=== PATIENT | female | born 1970 | race Caucasian/White ===

== ENCOUNTER 2017-08-02 17:24 | Emergency (ER) | payer MEDICARE, MEDICAID | END 2017-08-02 19:32 | disposition left against medical advice (07) | LOC: M ED 17:24 | DX: Z53.21 Procedure and treatment not carried out due to patient leaving prior to being seen by health care provider (principal) ==

== ENCOUNTER 2017-11-11 17:20 | Emergency (ER) | payer MEDICARE, MEDICAID | END 2017-11-11 21:22 | disposition home or self-care (01) | LOC: M ED 17:20 | DX: S40.012A Contusion of left shoulder, initial encounter (principal); W00.0XXA Fall on same level due to ice and snow, initial encounter; Y92.096 Garden or yard of other non-institutional residence as the place of occurrence of the external cause; I25.10 Atherosclerotic heart disease of native coronary artery without angina pectoris; J45.909 Unspecified asthma, uncomplicated; I25.2 Old myocardial infarction; F17.200 Nicotine dependence, unspecified, uncomplicated; Z91.018 Allergy to other foods; Z88.5 Allergy status to narcotic agent; Z88.8 Allergy status to other drugs, medicaments and biological substances; Z91.030 Bee allergy status; Z91.048 Other nonmedicinal substance allergy status; Z79.899 Other long term (current) drug therapy | CPT/HCPCS: 73030 ==

== ENCOUNTER 2018-07-15 15:07 | Emergency (ER) | payer MEDICARE, MEDICAID ==
[2018-07-15 15:50] LABS: BASO % 0.3 % (0.0-1.0); EOS # 0.2 10^3/uL (0.0-0.50); EOS % 1.7 % (0.0-3.0); HEMOGLOBIN 14.8 g/dl (12.0-15.5); IMMATURE GRANULOCYTE % 0.3 % (0-3.0); LYMPH # 3.3 10^3/uL (1.5-4.5); LYMPH % 37.8 % (24.0-44.0); MEAN CORPUSCULAR HEMOGLOBIN 31.8 pg (27.0-33.0); MEAN CORPUSCULAR HGB CONC 34.4 g/dl (32.0-36.5); MEAN CORPUSCULAR VOLUME 92.3 fl (80.0-96.0); MONO # 0.5 10^3/uL (0.0-0.8); MONO % 6.2 % (0.0-5.0); NEUTROPHILS # 4.6 10^3/uL (1.8-7.7); NEUTROPHILS % 53.7 % (36.0-66.0); PLATELET COUNT, AUTOMATED 326 10^3/uL (150-450); RED BLOOD COUNT 4.66 10^6/uL (4.00-5.40); RED CELL DISTRIBUTION WIDTH 12.6 % (11.5-14.5); WHITE BLOOD COUNT 8.7 10^3/uL (4.0-10.0)
[2018-07-15] MEDS: NS 1,000 ML IV (16:09)
[2018-07-15] MEDS: METOCLOPRAMIDE INJ 10MG/2ML VIAL (J2765) IV (16:09)
[2018-07-15] MEDS: diphenhydrAMINE INJ 50MG/ML VIAL (J1200) IV (16:09)
[2018-07-15 16:32] LABS: ACETAMINOPHEN LEVEL 4.4 UG/ML (10.0-30.0); ALBUMIN 4.1 GM/DL (3.2-5.2); ALBUMIN/GLOBULIN RATIO 1.21 (1.00-1.93); ALKALINE PHOSPHATASE 98 U/L (45-117); ALT/SGPT 48 U/L (12-78); ANION GAP 6 MEQ/L (8-16); AST/SGOT 24 U/L (7-37); BILIRUBIN,DIRECT 0.1 MG/DL (0.0-0.2); BILIRUBIN,TOTAL 0.4 MG/DL (0.2-1.0); BLOOD UREA NITROGEN 12 MG/DL (7-18); CALCIUM LEVEL 9.3 MG/DL (8.5-10.1); CARBON DIOXIDE LEVEL 28 MEQ/L (21-32); CHLORIDE LEVEL 104 MEQ/L (98-107); CK-MB VALUE MASS < 1.0 NG/ML (<3.6); CPK CREATINE PHOSPHOKINASE 73 U/L (26-192); CREATININE FOR GFR 0.73 MG/DL (0.55-1.30); ETHYL ALCOHOL (ETHANOL) 0.005 % (0.000-0.010); GLOMERULAR FILTRATION RATE > 60.0 (>58); GLUCOSE, FASTING 97 MG/DL (70-100); MB/CK RELATIVE INDEX 1.37 (< OR =4); SALICYLATE LEVEL 5.2 MG/DL (5.0-30.0); SODIUM LEVEL 138 MEQ/L (136-145); TOTAL PROTEIN 7.5 GM/DL (6.4-8.2); TROPONIN I < 0.02 NG/ML (< 0.10)
[2018-07-15 17:07] LABS: KETONE, URINE AUTO RFX NEGATIVE (NEGATIVE); LEUKOCYTE ESTERASE UR AUTO RFX NEGATIVE (NEGATIVE); NITRITE, URINE AUTO RFX NEGATIVE (NEGATIVE); RBC, URINE AUTO RFX 1 /HPF (0-3); SPECIFIC GRAVITY UR AUTO RFX 1.004 (1.002-1.035); SQUAM EPITHELIAL CELL UR AURFX 0 /HPF (0-6); WBC, URINE AUTO RFX 0 /HPF (0-3)
[2018-07-15 17:24] LABS: AMPHETAMINES LEVEL URINE NEGATIVE (NEGATIVE); BARBITURATES URINE NEGATIVE (NEGATIVE); BENZODIAZEPINES URINE NEGATIVE (NEGATIVE); CANNABINOIDS URINE NEGATIVE (NEGATIVE); COCAINE METABOLITE URINE NEGATIVE (NEGATIVE); METHADONE URINE NEGATIVE (NEGATIVE); OPIATES URINE NEGATIVE (NEGATIVE); PHENCYCLIDINE URINE NEGATIVE (NEGATIVE)
== END 2018-07-15 17:40 | disposition home or self-care (01) ==
LOC: M ED 15:07
DX: R51 Headache (principal); I45.10 Unspecified right bundle-branch block; Z72.0 Tobacco use; Z79.899 Other long term (current) drug therapy; Z91.013 Allergy to seafood; Z91.018 Allergy to other foods; Z88.5 Allergy status to narcotic agent; Z91.89 Other specified personal risk factors, not elsewhere classified
CPT/HCPCS: J1200

== ENCOUNTER → 2019-04-29 | Outpatient (REF) ==
[~2019-04-29] MED LIST: CENTCHW4 PO; IBUP80TA PO; MORP15TA2 PO; PROAAER IN; PROV10TA PO; REGL10TA6 PO; TYLE325T5 PO; VITA50005
--- NOTE | 2019-04-29 17:02 | REP ---
REASON: Disability determination. COMPARISON EXAMINATION: 04/16/2019, the latest prior. Vertebral body height and alignment is again seen to be within normal limits. There is disc space narrowing status quo. Minimally tiny partial syndesmophytes are seen on the right at L3-4. The pedicles are intact bilaterally. IMPRESSION:Mild chronic changes have developed since the prior exam as described above. Electronically Signed by Oli Boyce DO 04/29/2019 05:06 P
== END ==
LOC: M SMT 13:38
PROVIDERS: ATTEND Internal Medicine
DX: Z02.71 Encounter for disability determination (principal)

== ENCOUNTER 2019-08-12 15:59 | Emergency (ER) | payer MEDICARE, MEDICAID ==
[~2019-08-12] VITALS: Ht 160 cm; Wt 80.6 kg
[2019-08-12 15:59] VITALS: BP 132/74
--- NOTE | 2019-08-12 17:48 | REP ---
Right ring finger series: Four views. History: Swelling and redness. Limited range of motion. Findings: Four views of the ring finger demonstrate soft tissue swelling about the PIP joint. No fractures seen. No soft tissue gas or opaque foreign body is appreciated. No subluxation seen. Impression: Soft-tissue swelling. Otherwise negative radiographs of the right ring finger. Electronically Signed by Julian Longoria MD 08/12/2019 05:38 P
[2019-08-12 17:55] LABS: BASO % 0.4 % (0.0-1.0); EOS # 0.2 10^3/uL (0.0-0.5); HEMATOCRIT 44.7 % (36.0-47.0); HEMOGLOBIN 14.3 g/dl (12.0-15.5); LYMPH # 3.5 10^3/uL (1.5-5.0); LYMPH % 36.1 % (24.0-44.0); MEAN CORPUSCULAR VOLUME 96.8 fl (80.0-96.0); MONO # 0.7 10^3/uL (0.0-0.8); MONO % 7.2 % (0.0-5.0); NEUTROPHILS # 5.2 10^3/uL (1.5-8.5); NEUTROPHILS % 53.9 % (36.0-66.0); PLATELET COUNT, AUTOMATED 299 10^3/uL (150-450); RED BLOOD COUNT 4.62 10^6/uL (4.00-5.40); WHITE BLOOD COUNT 9.6 10^3/uL (4.0-10.0)
[2019-08-12] MEDS ORDERED: IBUPROFEN 800 MG TAB PO ONE (18:00)
[2019-08-12 18:16] LABS: C REACTIVE PROTEIN QUANTITATIV 0.89 MG/DL (0.00-0.30); URIC ACID 4.2 MG/DL (2.6-6.0)
[2019-08-12 18:32] LABS: ERYTHROCYTE SEDIMENTATION RATE 7 mm/hr (0-20)
== END 2019-08-12 19:42 | disposition home or self-care (01) ==
LOC: M ED 15:59
DX: R22.31 Localized swelling, mass and lump, right upper limb (principal); J45.909 Unspecified asthma, uncomplicated; M79.7 Fibromyalgia; M19.90 Unspecified osteoarthritis, unspecified site; I25.2 Old myocardial infarction; Z88.5 Allergy status to narcotic agent; Z88.8 Allergy status to other drugs, medicaments and biological substances; Z91.018 Allergy to other foods; Z91.030 Bee allergy status; Z91.048 Other nonmedicinal substance allergy status; F17.210 Nicotine dependence, cigarettes, uncomplicated

== ENCOUNTER 2019-12-15 12:43 | Emergency (ER) | payer OTHER, MEDICARE, MEDICAID ==
[~2019-12-15] VITALS: Ht 160 cm; Wt 83.3 kg
[2019-12-15 12:43] VITALS: BP 143/69
== END 2019-12-15 13:20 | disposition left against medical advice (07) ==
LOC: M ED 12:43
DX: Z53.21 Procedure and treatment not carried out due to patient leaving prior to being seen by health care provider (principal)

== ENCOUNTER 2021-10-11 10:47 | Emergency (ER) | payer MEDICARE, MEDICAID ==
[~2021-10-11] VITALS: Ht 160 cm; Wt 78.6 kg
[2021-10-11 11:22] VITALS: BP 139/66
== END 2021-10-11 16:49 | disposition home or self-care (01) ==
LOC: M ED 10:47
DX: M85.68 Other cyst of bone, other site (principal); S83.411A Sprain of medial collateral ligament of right knee, initial encounter; W01.0XXA Fall on same level from slipping, tripping and stumbling without subsequent striking against object, initial encounter; Y92.89 Other specified places as the place of occurrence of the external cause; Z88.5 Allergy status to narcotic agent; Z88.8 Allergy status to other drugs, medicaments and biological substances; Z91.018 Allergy to other foods; Z91.030 Bee allergy status; Z91.048 Other nonmedicinal substance allergy status; F17.210 Nicotine dependence, cigarettes, uncomplicated

== ENCOUNTER → 2021-11-15 | Outpatient (CLI) | payer MEDICARE, MEDICAID ==
[~2021-11-15] MED LIST changes: +PROHANCE 279.3MG/ML 15ML VIAL ONE; +PROHANCE 279.3MG/ML 5ML VIAL ONE
== END ==
LOC: M PLAIMG 14:09
PROVIDERS: ATTEND Orthopaedic Surgery Adult Reconstructive Orthopaedic Surgery
DX: M85.661 Other cyst of bone, right lower leg (principal)
CPT/HCPCS: 73723; A9576

== ENCOUNTER → 2022-01-26 | Outpatient (CLI) | payer MEDICARE, MEDICAID ==
[~2022-01-26] MED LIST changes: -PROHANCE 279.3MG/ML 15ML VIAL ONE; -PROHANCE 279.3MG/ML 5ML VIAL ONE
== END ==
LOC: M SOG 16:09
PROVIDERS: ATTEND Orthopaedic Surgery Adult Reconstructive Orthopaedic Surgery
DX: R93.7 Abnormal findings on diagnostic imaging of other parts of musculoskeletal system (principal)

== ENCOUNTER 2022-05-20 14:17 | Emergency (ER) | payer MEDICARE, MEDICAID ==
[~2022-05-20] VITALS: Ht 160 cm; Wt 75.9 kg
[2022-05-20 15:11] VITALS: BP 121/69
[2022-05-20] MEDS ORDERED: methylPREDNISolone 125MG 2ML VIAL IV ONE (15:45)
[2022-05-20] MEDS ORDERED: IPRATROPIUM 0.5MG/ALBUTEROL 2.5MG INH SOL UD 3ML (DUONEB) NEB PRN (15:45)
[2022-05-20 16:28] LABS: VENOUS PH 7.406 UNITS (7.330-7.430)
[2022-05-20 16:29] LABS: VENOUS BASE EXCESS -0.3 (-2.0-2.0); VENOUS HCO3 24.2 MEQ/L (23.0-27.0); VENOUS O2 SATURATION 97.6 % (60.0-80.0); VENOUS PARTIAL PRESSURE CO2 39.4 mmHg (38.0-50.0); VENOUS PARTIAL PRESSURE O2 103.4 mmHg (30.0-50.0); VENOUS STANDARD HCO3 24.2 MEQ/L; VENOUS TOTAL CO2 25.4 MEQ/L (24.0-28.0)
[2022-05-20 16:34] LABS: HEMATOCRIT 40.5 % (36.0-47.0); HEMOGLOBIN 13.6 g/dl (12.0-15.5); MEAN CORPUSCULAR HEMOGLOBIN 31.6 pg (27.0-33.0); MEAN CORPUSCULAR HGB CONC 33.6 g/dl (32.0-36.5); PLATELET COUNT, AUTOMATED 304 10^3/uL (150-450); RED BLOOD COUNT 4.31 10^6/uL (4.00-5.40); WHITE BLOOD COUNT 6.5 10^3/uL (4.0-10.0)
[2022-05-20 17:11] LABS: ALBUMIN 3.6 GM/DL (3.2-5.2); ALT/SGPT 92 U/L (12-78); BILIRUBIN,DIRECT 0.2 MG/DL (0.0-0.2); BILIRUBIN,TOTAL 0.3 MG/DL (0.2-1.0); BLOOD UREA NITROGEN 16 MG/DL (7-18); CALCIUM LEVEL 8.6 MG/DL (8.5-10.1); CARBON DIOXIDE LEVEL 25 MEQ/L (21-32); CHLORIDE LEVEL 106 MEQ/L (98-107); CK-MB VALUE MASS < 1.0 NG/ML (<3.6); CPK CREATINE PHOSPHOKINASE 97 U/L (26-192); CREATININE FOR GFR 0.72 MG/DL (0.55-1.30); GLOMERULAR FILTRATION RATE > 60.0 (>51); GLUCOSE, FASTING 102 MG/DL (70-100); MB/CK RELATIVE INDEX 1.03 (< OR =4); POTASSIUM SERUM 4.2 MEQ/L (3.5-5.1); SODIUM LEVEL 136 MEQ/L (136-145); TOTAL PROTEIN 7.2 GM/DL (6.4-8.2)
[2022-05-20 17:18] LABS: LYMPHOCYTES 38 % (16-44); MONOCYTES 7 % (0-5); NEUTROPHILS 55 % (28-66); PLATELET ESTIMATE NORMAL (NORMAL)
== END 2022-05-20 17:42 | disposition left against medical advice (07) ==
LOC: M ED 14:17
DX: R06.02 Shortness of breath (principal); Z53.20 Procedure and treatment not carried out because of patient's decision for unspecified reasons; R94.31 Abnormal electrocardiogram [ECG] [EKG]; J45.909 Unspecified asthma, uncomplicated; I25.2 Old myocardial infarction; I51.9 Heart disease, unspecified; F17.210 Nicotine dependence, cigarettes, uncomplicated; Z88.5 Allergy status to narcotic agent; Z88.8 Allergy status to other drugs, medicaments and biological substances; Z91.030 Bee allergy status; Z91.018 Allergy to other foods; Z91.048 Other nonmedicinal substance allergy status; Z90.710 Acquired absence of both cervix and uterus

== ENCOUNTER → 2022-12-12 | Outpatient (REF) | payer MEDICARE, MEDICAID ==
[2022-12-12 13:29] LABS: ALBUMIN 3.9 G/DL (3.2-5.2); ALKALINE PHOSPHATASE 98 U/L (46-116); ALT/SGPT 29 U/L (7.0-40); AST/SGOT 16 U/L (<34); BILIRUBIN,TOTAL 0.4 MG/DL (0.3-1.2); BLOOD UREA NITROGEN 14 MG/DL (9-23); CALCIUM LEVEL 9.4 MG/DL (8.5-10.1); CARBON DIOXIDE LEVEL 28 MMOL/L (20-31); CHLORIDE LEVEL 104 MMOL/L (98-107); CHOLESTEROL LEVEL 249 MG/DL (<200); CHOLESTEROL RISK RATIO 5.44 (<5); GLOMERULAR FILTRATION RATE > 60.0 (>51); GLUCOSE, FASTING 84 MG/DL (60-100); HDL CHOLESTEROL 45.7 MG/DL (>40); LDL CHOLESTEROL 139.3 MG/DL (<100); NON-HDL-C 203.3 MG/DL; POTASSIUM SERUM 4.6 MMOL/L (3.5-5.1); SODIUM LEVEL 140 MMOL/L (136-145); TRIGLYCERIDES LEVEL 320 MG/DL (<150)
[2022-12-12 13:34] LABS: THYROID STIMULATING HORMONE 1.594 uIU/ML (0.55-4.78)
[2022-12-12 13:43] LABS: HEMOGLOBIN A1c 5.2 % (4.0-6.0)
== END ==
LOC: M LAB REF 12:20
PROVIDERS: ATTEND Family Medicine Addiction Medicine
DX: Z83.3 Family history of diabetes mellitus (principal); E66.3 Overweight

== ENCOUNTER 2023-12-18 18:21 | Emergency (ER) | payer MEDICARE, MEDICAID ==
[~2023-12-18] VITALS: Ht 160 cm; Wt 83.3 kg
[2023-12-18 18:21] VITALS: BP 128/96; TEMP 98.6; O2SAT 100
== END 2023-12-18 19:58 | disposition left against medical advice (07) ==
LOC: M ED 18:21
DX: R07.0 Pain in throat (principal); Z53.9 Procedure and treatment not carried out, unspecified reason; I25.2 Old myocardial infarction; M79.7 Fibromyalgia; F17.200 Nicotine dependence, unspecified, uncomplicated; Z88.5 Allergy status to narcotic agent; Z88.8 Allergy status to other drugs, medicaments and biological substances; Z91.018 Allergy to other foods; Z91.89 Other specified personal risk factors, not elsewhere classified; Z91.030 Bee allergy status

== ENCOUNTER → 2024-04-28 | Outpatient (REF) | payer MEDICARE, MEDICAID ==
[2024-04-28 12:43] LABS: THYROID STIMULATING HORMONE 1.803 uIU/ML (0.55-4.78)
[2024-04-28 12:44] LABS: ALBUMIN 3.9 G/DL (3.2-5.2); ALKALINE PHOSPHATASE 132 U/L (46-116); ALT/SGPT 38 U/L (7.0-40); AST/SGOT 20 U/L (<34); BILIRUBIN,TOTAL 0.2 MG/DL (0.3-1.2); BLOOD UREA NITROGEN 16 MG/DL (9-23); CALCIUM LEVEL 9.9 MG/DL (8.5-10.1); CARBON DIOXIDE LEVEL 28 MMOL/L (20-31); CHLORIDE LEVEL 106 MMOL/L (98-107); CHOLESTEROL LEVEL 249 MG/DL (<200); CHOLESTEROL RISK RATIO 6.46 (<5); CREATININE FOR GFR 0.81 MG/DL (0.55-1.30); FREE T4 1.21 NG/DL (0.89-1.76); GLOMERULAR FILTRATION RATE > 60.0 (>51); GLUCOSE, FASTING 86 MG/DL (60-100); HDL CHOLESTEROL 38.5 MG/DL (>40); LDL CHOLESTEROL 135.5 MG/DL (<100); NON-HDL-C 210.5 MG/DL; POTASSIUM SERUM 4.6 MMOL/L (3.5-5.1); SODIUM LEVEL 139 MMOL/L (136-145); TOTAL PROTEIN 7.2 G/DL (5.7-8.2); TRIGLYCERIDES LEVEL 375 MG/DL (<150)
[2024-04-28 13:08] LABS: HIV 1&2 SCREEN NEGATIVE (NEGATIVE)
== END ==
LOC: M LAB REF 11:59
PROVIDERS: ATTEND Family Medicine Addiction Medicine
DX: Z00.00 Encounter for general adult medical examination without abnormal findings (principal); E78.00 Pure hypercholesterolemia, unspecified

== ENCOUNTER → 2024-07-27 | Outpatient (REF) | payer MEDICARE, MEDICAID ==
[2024-07-27 13:35] LABS: BASO # 0.1 10^3/uL (0.0-0.2); BASO % 0.6 % (0.0-1.0); EOS # 0.3 10^3/uL (0.0-0.5); EOS % 3.7 % (0.0-3.0); HEMATOCRIT 43.5 % (36.0-47.0); HEMOGLOBIN 14.5 g/dl (12.0-15.5); LYMPH # 3.1 10^3/uL (1.5-5.0); LYMPH % 39.2 % (24.0-44.0); MEAN CORPUSCULAR HEMOGLOBIN 31.5 pg (27.0-33.0); MEAN CORPUSCULAR HGB CONC 33.3 g/dl (32.0-36.5); MEAN CORPUSCULAR VOLUME 94.4 fl (80.0-96.0); MONO # 0.6 10^3/uL (0.0-0.8); MONO % 7.5 % (2.0-8.0); NEUTROPHILS # 3.9 10^3/uL (1.5-8.5); NEUTROPHILS % 48.7 % (36.0-66.0); PLATELET COUNT, AUTOMATED 291 10^3/uL (150-450); RED BLOOD COUNT 4.61 10^6/uL (4.00-5.40); WHITE BLOOD COUNT 7.9 10^3/uL (4.0-10.0)
[2024-07-27 13:44] LABS: THYROID STIMULATING HORMONE 3.238 uIU/ML (0.55-4.78); TOTAL 25(OH) VITAMIN D 14.8 NG/ML (20.0-100.0)
[2024-07-27 13:49] LABS: FREE T4 1.16 NG/DL (0.89-1.76)
[2024-07-27 13:50] LABS: ALBUMIN 3.8 G/DL (3.2-5.2); ALKALINE PHOSPHATASE 107 U/L (35-104); ALT/SGPT 33 U/L (7.0-40); AST/SGOT 22 U/L (<34); BILIRUBIN,TOTAL 0.4 MG/DL (0.3-1.2); BLOOD UREA NITROGEN 14 MG/DL (9-23); CALCIUM LEVEL 9.8 MG/DL (8.5-10.1); CARBON DIOXIDE LEVEL 28 MMOL/L (20-31); CHLORIDE LEVEL 106 MMOL/L (98-107); CHOLESTEROL LEVEL 254 MG/DL (<200); CHOLESTEROL RISK RATIO 6.13 (<5); CREATININE FOR GFR 0.64 MG/DL (0.55-1.30); GLOMERULAR FILTRATION RATE > 60.0 (>51); GLUCOSE, FASTING 95 MG/DL (60-100); HDL CHOLESTEROL 41.4 MG/DL (>40); LDL CHOLESTEROL 150.4 MG/DL (<100); NON-HDL-C 212.6 MG/DL; POTASSIUM SERUM 4.3 MMOL/L (3.5-5.1); SODIUM LEVEL 141 MMOL/L (136-145); TOTAL PROTEIN 6.8 G/DL (5.7-8.2); TRIGLYCERIDES LEVEL 311 MG/DL (<150)
== END ==
LOC: M LAB REF 12:46
PROVIDERS: ATTEND Family Medicine Addiction Medicine
DX: E78.1 Pure hyperglyceridemia (principal); D64.9 Anemia, unspecified; E55.9 Vitamin D deficiency, unspecified

== ENCOUNTER → 2024-11-13 | Outpatient (REF) | payer MEDICARE, MEDICAID ==
[2024-11-13 13:44] LABS: ALBUMIN 3.6 G/DL (3.2-5.2); ALKALINE PHOSPHATASE 104 U/L (35-104); ALT/SGPT 30 U/L (7.0-40); AST/SGOT 16 U/L (<34); BILIRUBIN,TOTAL 0.4 MG/DL (0.3-1.2); BLOOD UREA NITROGEN 10 MG/DL (9-23); CALCIUM LEVEL 9.3 MG/DL (8.5-10.1); CARBON DIOXIDE LEVEL 30 MMOL/L (20-31); CHLORIDE LEVEL 105 MMOL/L (98-107); CREATININE FOR GFR 0.63 MG/DL (0.55-1.30); GLOMERULAR FILTRATION RATE > 90.0 (>51); GLUCOSE, FASTING 92 MG/DL (60-100); POTASSIUM SERUM 4.6 MMOL/L (3.5-5.1); SODIUM LEVEL 141 MMOL/L (136-145); TOTAL PROTEIN 6.8 G/DL (5.7-8.2)
[2024-11-13 13:45] LABS: THYROID STIMULATING HORMONE 2.532 uIU/ML (0.55-4.78); TOTAL 25(OH) VITAMIN D 39.1 NG/ML (20.0-100.0)
[2024-11-13 14:10] LABS: HEMOGLOBIN A1c 4.7 % (4.0-6.0)
== END ==
LOC: M LAB REF 13:10
PROVIDERS: ATTEND Family Medicine Addiction Medicine
DX: E55.9 Vitamin D deficiency, unspecified (principal); Z68.33 Body mass index [BMI] 33.0-33.9, adult; Z13.1 Encounter for screening for diabetes mellitus; E78.1 Pure hyperglyceridemia

== ENCOUNTER → 2025-04-09 | Outpatient (REF) | payer MEDICARE, MEDICAID ==
[2025-04-09 13:30] LABS: ALT/SGPT 38 U/L (7.0-40); AST/SGOT 25 U/L (<34); CALCIUM LEVEL 9.8 MG/DL (8.5-10.1); CARBON DIOXIDE LEVEL 27 MMOL/L (20-31); CHLORIDE LEVEL 108 MMOL/L (98-107); CHOLESTEROL LEVEL 284 MG/DL (<200); CHOLESTEROL RISK RATIO 5.52 (<5); CREATININE FOR GFR 0.63 MG/DL (0.55-1.30); GLOMERULAR FILTRATION RATE > 90.0 (>51); LDL CHOLESTEROL 180.4 MG/DL (<100); NON-HDL-C 232.6 MG/DL; POTASSIUM SERUM 4.4 MMOL/L (3.5-5.1); SODIUM LEVEL 143 MMOL/L (136-145); TRIGLYCERIDES LEVEL 261 MG/DL (<150)
[2025-04-09 13:31] LABS: FREE T4 1.19 NG/DL (0.89-1.76)
== END ==
LOC: M LAB REF 11:43
PROVIDERS: ATTEND Family Medicine Addiction Medicine
DX: E78.1 Pure hyperglyceridemia (principal)

== ENCOUNTER → 2025-04-20 | Outpatient (REF) | LOC: M PLAIMG 11:16 | PROVIDERS: ATTEND Internal Medicine | DX: Z01.89 Encounter for other specified special examinations (principal) ==

== ENCOUNTER → 2025-07-16 | Outpatient (CLI) | payer MEDICARE, MEDICAID | LOC: M RAD 06:47 | PROVIDERS: ATTEND Internal Medicine Pulmonary Disease | DX: R91.8 Other nonspecific abnormal finding of lung field (principal); J43.2 Centrilobular emphysema ==